=== PATIENT | female | born 1945 | race Caucasian/White ===

== ENCOUNTER 2017-04-22 09:44 | Outpatient (CLI) | payer MEDICARE | END 2017-04-22 23:59 | disposition home or self-care (01) | LOC: RAD 09:44 | PROVIDERS: ATTEND Physician Assistant | DX: R40.1 Stupor (principal) | CPT/HCPCS: 95816 ==

== ENCOUNTER 2017-05-19 00:55 | Outpatient (CLI) | payer MEDICARE | END 2017-05-19 23:59 | disposition home or self-care (01) | LOC: DIABETIC 00:55 | PROVIDERS: ATTEND Specialist | DX: E11.65 Type 2 diabetes mellitus with hyperglycemia (principal) | CPT/HCPCS: G0108 ==

== ENCOUNTER 2017-07-14 02:19 | Outpatient (CLI) | payer MEDICARE | END 2017-07-14 23:59 | disposition home or self-care (01) | LOC: DIABETIC 02:19 | PROVIDERS: ATTEND Specialist | DX: E11.65 Type 2 diabetes mellitus with hyperglycemia (principal) | CPT/HCPCS: G0108 ==

== ENCOUNTER 2017-10-14 02:41 | Outpatient (CLI) | payer MEDICARE | END 2017-10-14 23:59 | disposition home or self-care (01) | LOC: DIABETIC 02:41 | PROVIDERS: ATTEND Specialist | DX: E11.65 Type 2 diabetes mellitus with hyperglycemia (principal); Z79.4 Long term (current) use of insulin | CPT/HCPCS: G0108 ==

== ENCOUNTER 2018-01-21 01:33 | Outpatient (CLI) | payer MEDICARE | END 2018-01-21 23:59 | disposition home or self-care (01) | LOC: DIABETIC 01:33 | PROVIDERS: ATTEND Specialist | DX: E11.65 Type 2 diabetes mellitus with hyperglycemia (principal); Z79.4 Long term (current) use of insulin; Z88.2 Allergy status to sulfonamides | CPT/HCPCS: G0108 ==